=== PATIENT | male | born 1965 | race Caucasian/White ===

== ENCOUNTER → 2019-01-06 | Outpatient (CLI) | payer OTHER ==
--- NOTE | 2019-01-06 15:48 | Diagnostic Imaging Report ---
MRI of the left shoulder without contrast. MRI of the left humerus without contrast History: Shoulder pain. Arm pain. Sprain. Trauma. Comparison: None Technique: Multiplanar multisequence MRI of the left shoulder without contrast. Multiplanar multisequence MRI of the left humerus without contrast. Findings: Left shoulder MRI: Rotator cuff: Rotator cuff tendinosis with full-thickness tear involving the anterior fibers of the supraspinatus tendon at the humeral insertion site. This is best seen on sagittal image 5 and 6 as well as coronal image 11 and 12. There is minimal retraction of the torn fibers and no muscle atrophy. Additionally, there is infraspinatus and subscapularis tendinosis. The teres minor tendon is intact. Osseous acromion complex: Type II acromion with mild lateral downsloping. Moderate degenerative arthrosis at the acromioclavicular joint with undersurface spurring and narrowing of the supraspinatus tendon outlet. Glenohumeral joint: Degeneration and fraying of the labrum. The articular cartilage surfaces are slightly thin. The humeral head is well-seated in the glenoid fossa. Small effusion and mild synovitis in the rotator interval and subcoracoid space. Biceps tendon: The biceps tendon is intact. Other findings: Negative for muscle denervation or osseous fracture. Left humerus MRI: There is no acute fracture, subluxation or avascular necrosis about the humerus. No ligamentous or tendon tear is seen about the humerus. The visualized muscles are normal in size, signal intensity and morphology. The visualized neurovascular bundles are intact. Impression: Rotator cuff tendinosis with full-thickness tear involving the anterior fibers of the supraspinatus tendon at the humeral insertion site. There is minimal retraction of the torn fibers and no muscle atrophy. Moderate degenerative arthrosis at the acromioclavicular joint with narrowing of the supraspinatus tendon outlet. Small effusion and mild synovitis in the rotator interval and subcoracoid space. No acute fracture, subluxation or avascular necrosis about the humerus. No ligamentous or tendon tear is seen about the humerus. Signed by: Dr. Veto Jansen M.D. on 01/06/2019 3:44 PM
== END ==
LOC: MRI 13:17
PROVIDERS: ATTEND Family Medicine
DX: S43.402A Unspecified sprain of left shoulder joint, initial encounter (principal); S40.012D Contusion of left shoulder, subsequent encounter; S40.022D Contusion of left upper arm, subsequent encounter